=== PATIENT | male | born 1960 | race Caucasian/White ===

== ENCOUNTER 2018-03-31 12:00 | Observation (INO) | payer BC ==
[~2018-03-31] VITALS: Ht 177.8 cm; Wt 102.1 kg
[2018-03-31 11:34] VITALS: BP 156/98
--- NOTE | 2018-03-31 11:50 | NUR ---
ekg abnormal ekg reported to Dr. Gallegos. no further orders given, ok to proceed with planned sx
[~2018-03-31 12:00] MED LIST: PHARMACY COMMUNICATION MISC SCH
[2018-03-31 12:03] LABS: BASOPHILS % (AUTO) 0.7 % (0.0-5.0); EOSINOPHILS % (AUTO) 3.1 % (0.0-8.0); HEMATOCRIT 51.7 % (42-54); LYMPHOCYTES % (AUTO) 22.2 % (21.0-51.0); MEAN CORPUSCULAR HEMOGLOBIN 32.2 pg (27.0-33.0); MEAN CORPUSCULAR HGB CONC 35.3 g/dL (32.0-36.0); MEAN CORPUSCULAR VOLUME 91.1 fL (79-99); MONOCYTES % (AUTO) 7.4 % (3.0-13.0); NEUTROPHILS % (AUTO) 66.6 % (40.0-77.0); NUCLEATED RED BLOOD CELLS 0.1 % (0.0-0.19); PLATELET COUNT (AUTO) 153 K/uL (130-400); RED BLOOD CELL COUNT(AUTO) 5.68 MIL/uL (4.50-6.20); WHITE BLOOD COUNT (AUTO) 6.4 K/uL (4.8-10.8)
[2018-03-31 12:09] LABS: PARTIAL THROMBOPLASTIN TIME 29.7 SEC (26.3-35.5); PROTHROMBIN TIME 10.5 SEC (9.6-11.6)
[2018-03-31 12:17] LABS: ALBUMIN 3.8 g/dL (3.5-5.0); BILIRUBIN,TOTAL 0.3 mg/dL (0.2-1.0); POTASSIUM 4.2 mmol/L (3.5-5.1); TOTAL PROTEIN, SERUM 7.9 g/dL (6.0-8.3)
[2018-03-31 12:31] LABS: BILIRUBIN,URINE Negative (NEGATIVE); COLOR,URINE Yellow (YELLOW); GLUCOSE, URINE (UA) Negative (NEGATIVE); KETONES,URINE Negative (NEGATIVE); LEUKOCYTE ESTERASE ,URINE Negative (NEGATIVE); NITRATE,URINE Negative (NEGATIVE); OCCULT BLOOD,URINE Negative (NEGATIVE); PH,URINE 6.5 (5.0-8.0); PROTEIN,URINE Negative (NEGATIVE); UROBILINOGEN,URINE 0.2 mg/dL (0.2-1.0)
[2018-03-31 12:51] LABS: APPEARANCE,URINE CLEAR (CLEAR)
[2018-04-01] VITALS (20 sets, daily range): BP systolic 102–152; BP diastolic 54–92
[2018-04-01] MEDS ORDERED: LACTATED RINGERS 1000ML 1,000 ML IV ONE (07:12)
[2018-04-01] MEDS ORDERED: CEFAZOLIN SODIUM 1 GM VIAL ONE (07:12)
[2018-04-01] MEDS ORDERED: GENTAMICIN SULFATE 100 MG in SODIUM CHLORIDE 0.9% 100 ML IV SCH ×2 (07:30→17:00)
[2018-04-01] MEDS: CEFAZOLIN SODIUM 1 GM VIAL IVP SCH ×2 (07:30→11:00)
--- NOTE | 2018-04-01 07:44 | NUR ---
clip right arm clipped and wiped with jackelyn.
[2018-04-01] MEDS ORDERED: PROPOFOL 10 MG/ML 20ML VIAL IV ONE ×2 (10:34→10:59)
[2018-04-01] MEDS ORDERED: MIDAZOLAM HCL 1 MG/ML 2ML VIAL ONE (10:35)
[2018-04-01] MEDS ORDERED: FENTANYL CITRATE PF 50 MCG/1 ML 2ML VIAL ONE ×2 (10:35→13:26)
[2018-04-01] MEDS ORDERED: ROCURONIUM 10MG/1ML SYR 10 MG/ML ML ONE (10:36)
[2018-04-01] MEDS ORDERED: FENTANYL CITRATE PF 50 MCG/1 ML 5ML AMP IV ONE (11:17)
[2018-04-01] MEDS ORDERED: EPHEDRINE SULFATE 50 MG/ML AMPULE ONE (11:26)
--- NOTE | 2018-04-01 13:55 | NUR ---
RECEIVE PT RECEIVED FROM PACU VIA BED AWAKE ALERT ORIENTED X3. PT STABLE. NO COMPLAINTS MADE. DRESSING TO RIGHT HAND DRY AND INTACT, ABLE TO MOVE THUMB AND 5TH FINGER (OTHER FINGERS INSIDE DRESSING), CAPILLARY REFILLS BRISK, RIGHT HAND KEPT ELEVATED.
[2018-04-01] MEDS ORDERED: CEFAZOLIN SODIUM 1 GM VIAL IVP SCH (16:15)
--- NOTE | 2018-04-01 16:30 | NUR ---
ACTIVITY PT ASSISTED TO BATHROOM, AMBULATED WITHOUT ANY PROBLEMS, VOIDED X1, GOOD AMOUNT.
--- NOTE | 2018-04-01 18:20 | NUR ---
DISCHARGE PT DISCHARGED VIA WHEELCHAIR WITH . PT STABLE. NO COMPLAINTS MADE. PT TOLERATED ORAL FLUIDS WELL. POST OP IV ANTIBIOTICS GIVEN ORDERED WITHOUT ANY COMPLICATIONS. DRESSING TO RIGHT HAND REMAINED DRY AND INTACT, MOVEMENT TO FINGERS NOTED, CAPILLARY REFILLS BRISK. DISCHARGE INSTRUCTIONS GIVEN TO AND PT, COPY OF DR. SARMIENTO'S INSTRUCTIONS PROVIDED. VERBALIZED UNDERSTANDING.
== END 2018-04-01 18:20 | disposition home or self-care (01) ==
LOC: DAHIP 04-01 06:47 → EDSTATUS 04-01 12:00
DX: S56.119A Strain of flexor muscle, fascia and tendon of finger of unspecified finger at forearm level, initial encounter (principal); I10 Essential (primary) hypertension; Z87.891 Personal history of nicotine dependence; Z96.629 Presence of unspecified artificial elbow joint; Z79.899 Other long term (current) drug therapy; Z88.8 Allergy status to other drugs, medicaments and biological substances; Z82.49 Family history of ischemic heart disease and other diseases of the circulatory system; Z79.01 Long term (current) use of anticoagulants
CPT/HCPCS: 26180; 26357; 36415; 71045; 80053; 81003; 85025; 85610; 85730; 88304; 88305; 93005; 96365; 96375; A4218 ×2; A4450; A4649; A4930; A6223; A6446; G0378 ×13; J0690 ×2; J1580 ×2; J2250; J2704 ×2; J3010 ×3; J3490; J7120 ×2